=== PATIENT | female | born 1945 | race Caucasian/White ===

== ENCOUNTER 2018-12-27 19:06 | Inpatient (IN) | payer MEDICARE, OTHER ==
--- NOTE | 2018-12-27 19:39 | ER Document Report ---
ED Medical Screen (RME) - General Chief Complaint: Flu Symptoms Stated Complaint: POSS BRONCHITIS Time Seen by Provider: 12/27/18 19:23 Mode of Arrival: Wheelchair Information source: Patient Notes: Patient is a 73-year-old female who presents to the emergency department with complaints of cough, congestion and fever. Patient reports this is been going on for several days, states last week she was diagnosed with the flu. She states yesterday she was seen at the urgent care and diagnosed with "fluid on her lungs". She states they started her on Tessalon Perles and azithromycin. She states her symptoms have worsened since then. She states she continues to have diarrhea several times daily. Denies any vomiting. Patient does have a history of bronchitis, COPD and asthma. Exam: Patient alert, oriented and answering all questions appropriately. Lung sounds with crackles and rhonchi throughout. I have greeted and performed a rapid initial assessment of this patient. A comprehensive ED assessment and evaluation of the patient, analysis of test results and completion of the medical decision making process will be conducted by additional ED providers. Dictation of this chart was performed using voice recognition software; therefore, there may be some unintended grammatical errors. TRAVEL OUTSIDE OF THE [place] IN LAST 30 DAYS: No - Related Data Allergies/Adverse Reactions: codeine Allergy (Verified 12/27/18 19:07) erythromycin base Allergy (Verified 12/27/18 19:07) Penicillins Allergy (Verified 12/27/18 19:07) Sulfa (Sulfonamide Antibiotics) Allergy (Verified 12/27/18 19:07) Physical Exam - Vital signs Vitals: Temp Pulse Resp BP Pulse Ox 98.1 F 94 18 133/66 H 92 12/27/18 19:15 12/27/18 19:15 12/27/18 19:15 12/27/18 19:15 12/27/18 19:15 Course - Vital Signs Vital signs: Temp Pulse Resp BP Pulse Ox 98.1 F 94 18 133/66 H 92 12/27/18 19:15 12/27/18 19:15 12/27/18 19:15 12/27/18 19:15 12/27/18 19:15
--- NOTE | 2018-12-27 19:52 | RADIOLOGY REPORT (SQ) ---
EXAM DESCRIPTION: CHEST 2 VIEWS COMPLETED DATE/TIME: 12/27/2018 7:41 pm REASON FOR STUDY: FEVER, COUGH COMPARISON: None. EXAM PARAMETERS: NUMBER OF VIEWS: two views TECHNIQUE: Digital Frontal and Lateral radiographic views of the chest acquired. RADIATION DOSE: NA LIMITATIONS: none FINDINGS: LUNGS AND PLEURA: Mild interstitial prominence. No focal infiltrate, masses or pneumothor ax. No pleural effusion. MEDIASTINUM AND HILAR STRUCTURES: No masses or contour abnormalities. HEART AND VASCULAR STRUCTURES: Heart normal size. No evidence for failure. BONES: No acute findings. HARDWARE: None in the chest. OTHER: No other significant finding. IMPRESSION: NO ACUTE RADIOGRAPHIC FINDING IN THE CHEST. TECHNICAL DOCUMENTATION: JOB ID: [id number] [employer]- All Rights Reserved Reading location - IP/workstation name: [email or web address]
[2018-12-27 20:18] LABS: ABSOLUTE EOSINOPHILS # (AUTO) 0.1 10^3/uL (0.0-0.6); ABSOLUTE LYMPHOCYTES (AUTO) 1.7 10^3/uL (0.5-4.7); ABSOLUTE MONOCYTES (AUTO) 0.7 10^3/uL (0.1-1.4); ABSOLUTE NEUT (AUTO) 5.3 10^3/uL (1.7-8.2); BASOPHILS % (AUTO) 0.3 % (0-2); EOSINOPHILS % (AUTO) 0.8 % (0-6); HEMATOCRIT 39.8 % (36.0-47.0); HEMOGLOBIN 13.7 g/dL (12.0-15.5); LYMPHOCYTES % (AUTO) 21.5 % (13-45); MEAN CORPUSCULAR HEMOGLOBIN 30.9 pg (27.0-33.4); MEAN CORPUSCULAR HGB CONC 34.5 g/dL (32.0-36.0); MEAN CORPUSCULAR VOLUME 90 fl (80-97); MONOCYTES % (AUTO) 9.4 % (3-13); PLATELET COUNT 217 10^3/uL (150-450); RED BLOOD COUNT 4.44 10^6/uL (3.72-5.28); RED CELL DISTRIBUTION WIDTH 14.2 % (11.5-14.0); TOTAL CELLS COUNTED % (AUTO) 100 %; WHITE BLOOD COUNT 7.9 10^3/uL (4.0-10.5)
[2018-12-27 20:31] LABS: ALANINE AMINOTRANSFERASE 19 U/L (9-52); ALBUMIN 3.9 g/dL (3.5-5.0); ALKALINE PHOSPHATASE 50 U/L (38-126); ANION GAP 9 (5-19); ASPARTATE AMINO TRANSFERASE 32 U/L (14-36); BILIRUBIN,DIRECT 0.4 mg/dL (0.0-0.4); BILIRUBIN,TOTAL 0.6 mg/dL (0.2-1.3); BLOOD UREA NITROGEN 17 mg/dL (7-20); CALCIUM 9.7 mg/dL (8.4-10.2); CARBON DIOXIDE 25 mmol/L (22-30); CHLORIDE 102 mmol/L (98-107); GLUCOSE 118 mg/dL (75-110); POTASSIUM 4.3 mmol/L (3.6-5.0); SODIUM 135.6 mmol/L (137-145); TOTAL PROTEIN 6.5 g/dL (6.3-8.2)
[2018-12-27] MEDS ORDERED: METHYLPREDNISOLONE INJ 125 MG/2 ML SDV IV ONE (20:32)
[2018-12-27] MEDS ORDERED: RINGERS SOLUTION,LACTATED 1,000 ML IV ONE (20:32)
[2018-12-27] MEDS ORDERED: IPRATROPIUM/ALBUTEROL 0.5-2.5 MG/3 ML AMPUL NEB ONE (20:32)
--- NOTE | 2018-12-27 20:36 | ER Document Report ---
ED General - General Chief Complaint: Flu Symptoms Stated Complaint: FLU SYMPTOMS Time Seen by Provider: 12/27/18 19:23 Mode of Arrival: Wheelchair Notes: Patient is a 73-year-old female with a past medical history of hyperlipidemia, COPD without oxygen dependence at baseline who presents with 2 days of persistently worsening nonproductive cough, shortness of breath. Symptoms started gradually, have been worsening since onset, described as moderate to severe. Was seen at an urgent care yesterday, diagnosed as having a positive influenza test. Chest x-ray was obtained and there was concern of "fluid on the lungs". Patient was started on azithromycin and Tessalon Perles. She was instructed to come to the emergency department today due to worsening of her symptoms. Patient denies a history of similar symptoms in the past. She states her main symptom is shortness of breath and cough. Symptoms are worsened by exertion. Coughing also worsens her feeling of shortness of breath. She states the medications that have been started have not provided assistance. She has never had similar symptoms in the past. She does not yet have a local primary care doctor she recently moved to the area. She did receive both an influenza and pneumonia vaccine this year. TRAVEL OUTSIDE OF THE [place] IN LAST 30 DAYS: No - Related Data Allergies/Adverse Reactions: codeine Allergy (Verified 12/27/18 19:07) erythromycin base Allergy (Verified 12/27/18 19:07) Penicillins Allergy (Verified 12/27/18 19:07) Sulfa (Sulfonamide Antibiotics) Allergy (Verified 12/27/18 19:07) Past Medical History - General Information source: Patient - Social History Smoking Status: Former Smoker Frequency of alcohol use: None Drug Abuse: None Lives with: Alone Family History: Reviewed & Not Pertinent Patient has suicidal ideation: No Patient has homicidal ideation: No Pulmonary Medical History: Reports: Hx Asthma, Hx Bronchitis, Hx COPD Renal/ Medical History: Denies: Hx Peritoneal Dialysis Review of Systems - Review of Systems Notes: Constitutional: Negative for fever. HENT: Negative for sore throat. Eyes: Negative for visual changes. Cardiovascular: Negative for chest pain. Respiratory: Positive for shortness of breath and cough Gastrointestinal: Negative for abdominal pain, vomiting or diarrhea. Genitourinary: Negative for dysuria. Musculoskeletal: Negative for back pain. Skin: Negative for rash. Neurological: Negative for headaches, weakness or numbness. 10 point ROS negative except as marked above and in HPI. Physical Exam - Vital signs Vitals: Temp Pulse Resp BP Pulse Ox 98.1 F 94 18 133/66 H 92 12/27/18 19:15 12/27/18 19:15 12/27/18 19:15 12/27/18 19:15 12/27/18 19:15 Interpretation: Normal Notes: PHYSICAL EXAMINATION: GENERAL: Appears mildly uncomfortable but in no acute distress HEAD: Atraumatic, normocephalic. EYES: Pupils equal round and reactive to light, extraocular movements intact, sclera anicteric, conjunctiva are normal. ENT: nares patent, oropharynx clear without exudates. Moderately dry mucous membranes. NECK: Normal range of motion, supple without lymphadenopathy LUNGS: Coarse rales and expiratory wheezing in all lung [place]. No overt distress. Globally diminished air movement throughout. HEART: Regular rate and rhythm without murmurs ABDOMEN: Soft, nontender, normoactive bowel sounds. No guarding, no rebound. No masses appreciated. EXTREMITIES: Normal range of motion, no pitting or edema. No cyanosis. NEUROLOGICAL: No focal neurological deficits. Moves all extremities spontaneously and on command. PSYCH: Normal mood, normal affect. SKIN: Warm, Dry, normal turgor, no rashes or lesions noted. Course - Re-evaluation Re-evalutation: 12/27/18 20:35 Patient presents with what appears to be a COPD exacerbation secondary to underlying bronchitis. Chest x-ray without evidence of acute infiltrate. Lung exam likewise consistent with his diagnosis. Unfortunately patient is hypoxemic, 87% with good [place] on room air at the time of my assessment and does not normally have an oxygen dependency. Will begin continuous nebulizers, IV Solu-Medrol, IV magnesium, IV fluids and reassess. If the patient does persist with hypoxemia she will require hospitalization. 12/27/18 21:57 Patient has had persistent hypoxemia despite multiple [id number] nebs, magnesium steroids. I did go turn off her oxygen and patient desaturated to 88% within 2-3 minutes at the bedside. Supplemental oxygen restarted and I did discuss with the hospitalist Dr. Lewis who has accepted the patient for admission. - Vital Signs Vital signs: Temp Pulse Resp BP Pulse Ox 98.1 F 94 17 139/65 H 95 12/27/18 19:15 12/27/18 19:15 12/27/18 20:01 12/27/18 20:01 12/27/18 20:52 - Laboratory Result Diagrams: 12/27/18 19:58 12/27/18 19:58 Laboratory results interpreted by me: 12/27/18 12/27/18 19:58 19:58 RDW 14.2 H Sodium 135.6 L Glucose 118 H - Diagnostic Test Radiology reviewed: Image reviewed, Reports reviewed Radiology results interpreted by me: 12/27/18 20:36 Chest x-ray: No acute infiltrate or pneumothorax Discharge - Discharge Clinical Impression: Acute respiratory failure with hypoxia, Bronchitis COPD (chronic obstructive pulmonary disease) Qualifiers: COPD type: unspecified COPD Qualified Code(s): J44.9 - Chronic obstructive pulmonary disease, unspecified Condition: Fair Disposition: ADMITTED INPATIENT Admitting Provider: Joshua (Hospitalist) Unit Admitted: Telemetry
[2018-12-27] MEDS: MAGNESIUM SULFATE/D5W 1 GM/100 ML RTUPB IV SCH ×2 (20:42→21:19)
[2018-12-27 21:54] LABS: A TYPE INFLUENZA AG NEGATIVE (NEGATIVE); B INFLUENZA AG NEGATIVE (NEGATIVE)
[2018-12-27] MEDS ORDERED: ONDANSETRON HCL INJ/PF 4 MG/2 ML SDV IV PRN (22:24)
[2018-12-27] MEDS ORDERED: ALBUTEROL SULFATE 0.083% NEB 2.5 MG/3 ML AMPUL NEB PRN (22:24)
[2018-12-27 23:05] LABS: FREE T4 (FREE THYROXINE) 1.89 ng/dL (0.78-2.19)
[2018-12-27 23:07] LABS: INTERNATIONAL RATION (INR) 0.88; PROTHROMBIN TIME 12.4 SEC (11.4-15.4)
[2018-12-27 23:08] LABS: PARTIAL THROMBOPLASTIN TIME 30.9 SEC (23.5-35.8)
[2018-12-27 23:19] LABS: THYROID STIMULATING HORMONE 1.13 uIU/mL (0.47-4.68)
--- NOTE | 2018-12-28 00:47 | PDOC H&P ---
History of Present Illness Admission Date/PCP: 12/27/18 22:17 Patient complains of: diarrhea, chest congestion, shortness of breath History of Present Illness: JENNY FLOR is a 73 year old woman with COPD who has been feeling sick for about 1.5 weeks. She had diarrhea and cold sxmptoms for days and just yesterday went to urgent care, told she may have flu A (which is negative here). Sent home with cough syrup and z pack. [place] worse today with body aches, SOB and continued diarrhea, urgent care division operations manager doc advised she come to ED. Here she was found to be hypoxemic below 88% on RA, she does not use O2 at basline and she was having labored respirations. CXR does not show effusions or pNA, got one dose solumedrol 125 mg and duonebs. Still hypoxemic so now admitted to hospitalist with COPD exacerbation secondary to bronchitis. Past Medical History Cardiac Medical History: Denies: Atrial Fibrillation, Congestive Heart Failure, Coronary Artery Disease Pulmonary Medical History: Reports: Asthma, Bronchitis, Chronic Obstructive Pulmonary Disease (COPD) Neurological Medical History: Denies: Ischemic CVA, Multiple Sclerosis Endocrine Medical History: Denies: Diabetes Mellitus Type 2, Hyperthyroidism, Hypothyroidism Renal/ Medical History: Denies: Chronic Kidney Disease Malignancy Medical History: Denies: None GI Medical History: Denies: Cirrhosis, Gastroesophageal Reflux Disease Musculoskeltal Medical History: Denies: Arthritis, Fibromyalgia Skin Medical History: Denies: Eczema, Psoriasis Psychiatric Medical History: Denies: Alcohol Dependency, Depression, General Anxiety Disorder, Substance Abuse, Tobacco Dependency Traumatic Medical History: Reports: None Hematology: Denies: Anemia, Bleeding Tendencies Infectious Medical History: Denies: None Past Surgical History Past Surgical History: Reports: Orthopedic Surgery - left hand tendon release Social History Information Source: Patient, Relative Occupation: retired from [employer] and work Lives with: Alone Smoking Status: Former Smoker Number of Years Smokin Last Time Smoked: 11 years ago Frequency of Alcohol Use: None Hx Recreational Drug Use: No Drugs: None Hx Prescription Drug Abuse: No Past Social History Note: From [place], moved to [place] to take care of dad who just . Just recently moved to [facility] to live near daughter who is here. Pt in hotel for another month until her house is ready. - Advance Directive Resuscitation Status: OK to be intubated for respiratory failure, does not want chest compressions, but pressors/ACLS otherwise is ok Family History Family History: CAD Parental Family History Reviewed: Yes - father dies with [place], mom with CHF Children Family History Reviewed: Yes - healthy children Sibling(s) Family History Reviewed.: Yes - one brother twith multiple comorbidities Medication/Allergy Allergies/Adverse Reactions: codeine Allergy (Verified 12/27/18 19:07) erythromycin base Allergy (Verified 12/27/18 19:07) Penicillins Allergy (Verified 12/27/18 19:07) Sulfa (Sulfonamide Antibiotics) Allergy (Verified 12/27/18 19:07) Review of Systems Constitutional: PRESENT: anorexia, fatigue, fever(s) Eyes: ABSENT: visual disturbances Ears: ABSENT: hearing changes Nose, Mouth, and Throat: ABSENT: mouth pain, sore throat Cardiovascular: PRESENT: dyspnea on exertion. ABSENT: edema, palpitations Respiratory: PRESENT: cough, dyspnea, other - pleuritic chest pain. ABSENT: hemoptysis, sputum Gastrointestinal: PRESENT: diarrhea. ABSENT: abdominal pain, constipation, nausea, vomiting Genitourinary: ABSENT: difficulty urinating, dysuria Musculoskeletal: ABSENT: deformity, joint swelling Integumentary: ABSENT: erythema, lesions, wounds Neurological: ABSENT: dizziness, frequent falls, syncope Psychiatric: ABSENT: anxiety, depression Hematologic/Lymphatic: ABSENT: easy bleeding, easy bruising Physical Exam Vital Signs: Temp Pulse Resp BP Pulse Ox 98.1 F 94 17 118/83 94 12/27/18 19:15 12/27/18 19:15 12/27/18 20:01 12/27/18 22:00 12/27/18 22:00 Intake & Output 12/26/18 12/27/18 12/28/18 06:59 06:59 06:59 Intake Total 1162 Balance 1162 Weight 74.4 kg General appearance: PRESENT: cooperative, well-developed, well-nourished Head exam: PRESENT: atraumatic, normocephalic Eye exam: PRESENT: EOMI. ABSENT: conjunctival injection, scleral icterus Ear exam: PRESENT: normal external ear exam Mouth exam: PRESENT: neck supple, tongue midline Neck exam: ABSENT: tenderness, tracheal deviation Respiratory exam: PRESENT: rhonchi, wheezes. ABSENT: chest wall tenderness, rales, unlabored Cardiovascular exam: PRESENT: RRR. ABSENT: systolic murmur Pulses: PRESENT: normal radial pulses GI/Abdominal exam: PRESENT: normal bowel sounds, soft. ABSENT: distended, firm, guarding, tenderness Rectal exam: PRESENT: deferred Gentrourinary exam: ABSENT: indwelling catheter Extremities exam: ABSENT: calf tenderness, joint swelling, pedal edema, tenderness Musculoskeletal exam: PRESENT: normal inspection. ABSENT: deformity Neurological exam: PRESENT: alert, awake, oriented to person, oriented to place, oriented to situation, CN II-XII grossly intact Psychiatric exam: PRESENT: appropriate affect. ABSENT: anxious, depressed Skin exam: PRESENT: dry, intact, warm Results Laboratory Results: 12/27/18 19:58 12/27/18 19:58 12/27/18 12/27/18 12/27/18 19:58 19:58 19:58 WBC 7.9 RBC 4.44 Hgb 13.7 Hct 39.8 MCV 90 MCH 30.9 MCHC 34.5 RDW 14.2 H Plt Count 217 Seg Neutrophils % 68.0 Lymphocytes % 21.5 Monocytes % 9.4 Eosinophils % 0.8 Basophils % 0.3 Absolute Neutrophils 5.3 Absolute Lymphocytes 1.7 Absolute Monocytes 0.7 Absolute Eosinophils 0.1 Absolute Basophils 0.0 Sodium 135.6 L Potassium 4.3 Chloride 102 Carbon Dioxide 25 Anion Gap 9 BUN 17 Creatinine 0.61 Est GFR ( Amer) > 60 Est GFR (Non-Af Amer) > 60 Glucose 118 H Calcium 9.7 Total Bilirubin 0.6 AST 32 ALT 19 Alkaline Phosphatase 50 Total Protein 6.5 Albumin 3.9 TSH 1.13 Free T4 1.89 Impressions: Chest X-Ray 12/27/18 19:32 IMPRESSION: NO ACUTE RADIOGRAPHIC FINDING IN THE CHEST. Assessment and Plan - Diagnosis (1) Acute respiratory failure with hypoxia Is this a current diagnosis for this admission?: Yes Plan: pt does not use O2 at home, was hypoxemic <88% on RA in ED and after initial therapy and has dyspnea. She is now on 2L on NC O2 sattingin low 90s. WIll treat COPD and bronchitis. (2) COPD with acute exacerbation Is this a current diagnosis for this admission?: Yes Plan: States that prednisone can cause mouth sores but sheis not sure abotu this. HAs tolerate solumedtrol 125 x 1, I have ordered solumedrol 62.5 mg IV q 12 hrs and will follow closely. She states that the solumedrol improved her breathing quite a bit in the ED. She is also started on doxycycline 100 BID and duonebs q4hrs, albuterol q2hrs prn. (3) Bronchitis Is this a current diagnosis for this admission?: Yes Plan: pt has several antibiotic allergies that cause mouth swelling, states she has taken doxycycline in the past, will start doxycycline 100 mg po BID. Mucinex started. (4) Hypercholesterolemia Is this a current diagnosis for this admission?: Yes Plan: will start her tricor 145 mg daily - Time Time Spent with patient: 35 or more minutes Anticipated discharge: Home - Inpatient Certification Based on my medical assessment, after consideration of the patient's comorbidities, presenting symptoms, or acuity I expect that the services needed warrant INPATIENT care.: Yes I certify that my determination is in accordance with my understanding of [employer] 's requirements for reasonable and necessary INPATIENT services [42 CFR 412.3e].: Yes Medical Necessity: Need for Nebulizer Therapy and Monitoring of Response, Risk of Complication if Not Cared For in Hospital
[2018-12-28] MEDS ORDERED: DOXYCYCLINE HYCLATE 100 MG TABLET PO ONE ×2 (01:00→02:01)
[2018-12-28] MEDS ORDERED: GUAIFENESIN 600 MG TABLET.SA PO ONE (01:00)
[2018-12-28] MEDS: IPRATROPIUM/ALBUTEROL 0.5-2.5 MG/3 ML AMPUL NEB SCH ×7 (02:31→23:55)
[2018-12-28] MEDS: HEPARIN SOD (PORCINE) 5,000 UNIT/ML 1 ML SYRINGE SUBCUT SCH ×3 (05:43→21:12)
[2018-12-28] MEDS ORDERED: METHYLPREDNISOLONE INJ 125 MG/2 ML SDV IV SCH (06:00)
[2018-12-28 06:50] LABS: HEMOGLOBIN 11.9 g/dL (12.0-15.5); MEAN CORPUSCULAR HEMOGLOBIN 30.8 pg (27.0-33.4); MEAN CORPUSCULAR VOLUME 88 fl (80-97); PLATELET COUNT 174 10^3/uL (150-450); RED BLOOD COUNT 3.87 10^6/uL (3.72-5.28); RED CELL DISTRIBUTION WIDTH 13.9 % (11.5-14.0); WHITE BLOOD COUNT 4.3 10^3/uL (4.0-10.5)
[2018-12-28 07:19] LABS: ANION GAP 8 (5-19); BLOOD UREA NITROGEN 12 mg/dL (7-20); CALCIUM 8.7 mg/dL (8.4-10.2); CARBON DIOXIDE 23 mmol/L (22-30); CHLORIDE 106 mmol/L (98-107); GLUCOSE 238 mg/dL (75-110); POTASSIUM 3.9 mmol/L (3.6-5.0); SODIUM 136.8 mmol/L (137-145)
[2018-12-28] MEDS: METHYLPREDNISOLONE INJ 125 MG/2 ML SDV IV SCH ×2 (09:06→21:13)
[2018-12-28] MEDS: GUAIFENESIN 600 MG TABLET.SA PO SCH ×2 (09:06→21:13)
[2018-12-28] MEDS: DOXYCYCLINE HYCLATE 100 MG TABLET PO SCH ×2 (09:06→21:13)
[2018-12-28] MEDS: ACETAMINOPHEN 325 MG TABLET PO PRN (18:47)
[2018-12-28] MEDS ORDERED: MAG HYDROX/AL HYDROX/SIMETH SUSP 30 ML UDCUP PO PRN (19:01)
[2018-12-29] MEDS: IPRATROPIUM/ALBUTEROL 0.5-2.5 MG/3 ML AMPUL NEB SCH (04:11)
[2018-12-29 05:34] LABS: ABSOLUTE LYMPHOCYTES (AUTO) 0.9 10^3/uL (0.5-4.7); ABSOLUTE MONOCYTES (AUTO) 0.6 10^3/uL (0.1-1.4); ABSOLUTE NEUT (AUTO) 10.7 10^3/uL (1.7-8.2); BASOPHILS % (AUTO) 0.1 % (0-2); HEMATOCRIT 35.7 % (36.0-47.0); HEMOGLOBIN 12.3 g/dL (12.0-15.5); LYMPHOCYTES % (AUTO) 7.3 % (13-45); MEAN CORPUSCULAR HEMOGLOBIN 30.6 pg (27.0-33.4); MEAN CORPUSCULAR HGB CONC 34.4 g/dL (32.0-36.0); MEAN CORPUSCULAR VOLUME 89 fl (80-97); MONOCYTES % (AUTO) 4.9 % (3-13); PLATELET COUNT 236 10^3/uL (150-450); RED BLOOD COUNT 4.01 10^6/uL (3.72-5.28); SEGMENTED NEUTROPHILS % (AUTO) 87.7 % (42-78); TOTAL CELLS COUNTED % (AUTO) 100 %
[2018-12-29 05:39] LABS: WHITE BLOOD COUNT 12.2 10^3/uL (4.0-10.5)
[2018-12-29 05:51] LABS: ANION GAP 9 (5-19); BLOOD UREA NITROGEN 13 mg/dL (7-20); CALCIUM 10.8 mg/dL (8.4-10.2); CARBON DIOXIDE 25 mmol/L (22-30); CHLORIDE 106 mmol/L (98-107); GLUCOSE 173 mg/dL (75-110); POTASSIUM 3.9 mmol/L (3.6-5.0); SODIUM 139.5 mmol/L (137-145)
[2018-12-29] MEDS ORDERED: PANTOPRAZOLE SODIUM 40 MG TABLET.DR PO SCH (06:00)
[2018-12-29] MEDS: HEPARIN SOD (PORCINE) 5,000 UNIT/ML 1 ML SYRINGE SUBCUT SCH ×3 (06:39→22:38)
--- NOTE | 2018-12-29 07:54 | PDOC PROGRESS REPORT ---
Subjective Progress Note for:: 12/28/18 Subjective:: The patient feels slightly better with regard to breathing. She did report having black stools. Her hemoglobin is lower today than at admission. The dark stools have been present for a week or 2. She does not have any associated epigastric discomfort. The patient does report intermittent discomfort across the lower abdomen. She is pain-free currently. Reason For Visit: COPD WITH ACUTE EXACERBATION, BRONCHITIS AND ACUTE Physical Exam Vital Signs: Temp Pulse Resp BP Pulse Ox 97.7 F 92 18 123/61 92 12/28/18 11:17 12/28/18 12:17 12/28/18 12:17 12/28/18 11:17 12/28/18 12:17 Intake & Output 12/27/18 12/28/18 12/29/18 06:59 06:59 06:59 Intake Total 1162 Balance 1162 Weight 74.9 kg General appearance: PRESENT: cooperative, mild distress, well-developed Head exam: PRESENT: atraumatic, normocephalic Eye exam: PRESENT: conjunctiva pink. ABSENT: scleral icterus Ear exam: PRESENT: normal external ear exam Mouth exam: PRESENT: moist, tongue midline Teeth exam: ABSENT: poor dentation Respiratory exam: PRESENT: rhonchi - Bilaterally, symmetrical. ABSENT: rales, tachypnea, wheezes Cardiovascular exam: PRESENT: RRR, +S1, +S2, systolic murmur - 2/6 Vascular exam: ABSENT: pallor GI/Abdominal exam: PRESENT: normal bowel sounds, soft. ABSENT: distended, tenderness Rectal exam: PRESENT: heme (+) stool Gentrourinary exam: ABSENT: indwelling catheter Extremities exam: ABSENT: pedal edema Neurological exam: PRESENT: alert, awake, oriented to person, oriented to place, oriented to time, oriented to situation, CN II-XII grossly intact Psychiatric exam: PRESENT: normal mood. ABSENT: agitated, anxious Focused psych exam: ABSENT: delusional, restlessness Skin exam: PRESENT: dry, warm. ABSENT: pallor Results Laboratory Results: 12/28/18 06:27 12/28/18 06:27 12/27/18 12/27/18 12/27/18 19:58 19:58 19:58 WBC 7.9 RBC 4.44 Hgb 13.7 Hct 39.8 MCV 90 MCH 30.9 MCHC 34.5 RDW 14.2 H Plt Count 217 Seg Neutrophils % 68.0 Lymphocytes % 21.5 Monocytes % 9.4 Eosinophils % 0.8 Basophils % 0.3 Absolute Neutrophils 5.3 Absolute Lymphocytes 1.7 Absolute Monocytes 0.7 Absolute Eosinophils 0.1 Absolute Basophils 0.0 Sodium 135.6 L Potassium 4.3 Chloride 102 Carbon Dioxide 25 Anion Gap 9 BUN 17 Creatinine 0.61 Est GFR ( Amer) > 60 Est GFR (Non-Af Amer) > 60 Glucose 118 H Calcium 9.7 Total Bilirubin 0.6 AST 32 ALT 19 Alkaline Phosphatase 50 Total Protein 6.5 Albumin 3.9 TSH 1.13 Free T4 1.89 12/28/18 12/28/18 06:27 06:27 WBC 4.3 RBC 3.87 Hgb 11.9 L Hct 34.0 L MCV 88 MCH 30.8 MCHC 35.0 RDW 13.9 Plt Count 174 Seg Neutrophils % Lymphocytes % Monocytes % Eosinophils % Basophils % Absolute Neutrophils Absolute Lymphocytes Absolute Monocytes Absolute Eosinophils Absolute Basophils Sodium 136.8 L Potassium 3.9 Chloride 106 Carbon Dioxide 23 Anion Gap 8 BUN 12 Creatinine 0.51 L Est GFR ( Amer) > 60 Est GFR (Non-Af Amer) > 60 Glucose 238 H Calcium 8.7 Total Bilirubin AST ALT Alkaline Phosphatase Total Protein Albumin TSH Free T4 Impressions: Chest X-Ray 12/27/18 19:32 IMPRESSION: NO ACUTE RADIOGRAPHIC FINDING IN THE CHEST. Assessment and Plan - Diagnosis (1) Acute respiratory failure with hypoxia Is this a current diagnosis for this admission?: Yes Plan: The patient is not on supplemental oxygen at home. She is on nasal cannula at this time. We will try and wean to room air. (2) COPD with acute exacerbation Is this a current diagnosis for this admission?: Yes Plan: Currently slightly improved on antibiotics, IV steroids and scheduled nebulizer treatments. She is on Advair at home. Over the next day or so I will resume daily inhaler regimen and and decrease scheduled nebulizer treatments. Continue antibiotics. (3) Bronchitis Is this a current diagnosis for this admission?: Yes Plan: Continue doxycycline. (4) Guaiac positive stools Is this a current diagnosis for this admission?: Yes Plan: The patient admits dark stools for several weeks. Abdominal pain is across the lower abdomen and not epigastric. She is on proton pump inhibitor therapy. Stool be submitted for occult blood testing. Hemoglobin did drop from admission. Additional workup will be based on Hemoccult testing. - Time Time Spent with patient: 15-24 minutes Medications reviewed and adjusted accordingly: Yes Anticipated discharge: Home
[2018-12-29] MEDS ORDERED: IPRATROPIUM/ALBUTEROL 0.5-2.5 MG/3 ML AMPUL NEB SCH (08:00)
[2018-12-29] MEDS: PANTOPRAZOLE SODIUM 40 MG TABLET.DR PO SCH ×2 (08:26→16:45)
[2018-12-29] MEDS: TIOTROPIUM BROMIDE DPI 5 CAP/KIT (18 MCG/CAP) IH SCH (10:35)
[2018-12-29] MEDS: GUAIFENESIN 600 MG TABLET.SA PO SCH ×2 (10:35→22:37)
[2018-12-29] MEDS: FLUTICASONE/VILANTEROL 100-25 MCG/DOSE IH SCH (10:36)
[2018-12-29] MEDS: METHYLPREDNISOLONE INJ 125 MG/2 ML SDV IV SCH ×2 (10:36→22:38)
[2018-12-29] MEDS: DOXYCYCLINE HYCLATE 100 MG TABLET PO SCH ×2 (10:36→22:38)
--- NOTE | 2018-12-29 14:40 | PDOC PROGRESS REPORT ---
Subjective Progress Note for:: 12/29/18 Subjective:: The patient reports some epigastric discomfort. I made her aware of her guaiac positive stool. Her breathing is improved but still somewhat congested. Reason For Visit: COPD WITH ACUTE EXACERBATION, BRONCHITIS AND ACUTE Physical Exam Vital Signs: Temp Pulse Resp BP Pulse Ox 97.8 F 75 17 149/87 H 94 12/29/18 11:06 12/29/18 11:06 12/29/18 11:06 12/29/18 11:06 12/29/18 11:06 Intake & Output 12/28/18 12/29/18 12/30/18 06:59 06:59 06:59 Intake Total 1162 1083 Output Total 300 Balance 1162 783 Weight 74.9 kg 75 kg General appearance: PRESENT: no acute distress, cooperative, well-developed, other - On nasal cannula oxygen Head exam: PRESENT: atraumatic, normocephalic Eye exam: PRESENT: conjunctiva pink. ABSENT: scleral icterus Ear exam: PRESENT: normal external ear exam Mouth exam: PRESENT: moist, tongue midline Neck exam: ABSENT: carotid bruit, lymphadenopathy Respiratory exam: PRESENT: symmetrical, unlabored, other - Still with congested breath sounds. Faint intermittent wheeze present on the left.. ABSENT: accessory muscle use, rales, rhonchi Cardiovascular exam: PRESENT: RRR, +S1, +S2 GI/Abdominal exam: PRESENT: normal bowel sounds, soft. ABSENT: distended, tenderness Rectal exam: PRESENT: deferred, heme (+) stool Extremities exam: ABSENT: pedal edema Musculoskeletal exam: PRESENT: ambulatory Neurological exam: PRESENT: alert, awake, oriented to person, oriented to place, oriented to time, oriented to situation, CN II-XII grossly intact Psychiatric exam: PRESENT: normal mood. ABSENT: agitated, anxious Focused psych exam: ABSENT: delusional, restlessness Results Laboratory Results: 12/29/18 04:20 12/29/18 04:20 12/28/18 12/29/18 12/29/18 18:45 04:20 04:20 WBC 12.2 H D RBC 4.01 Hgb 12.3 Hct 35.7 L MCV 89 MCH 30.6 MCHC 34.4 RDW 14.0 Plt Count 236 Seg Neutrophils % 87.7 H Lymphocytes % 7.3 L Monocytes % 4.9 Eosinophils % 0.0 Basophils % 0.1 Absolute Neutrophils 10.7 H Absolute Lymphocytes 0.9 Absolute Monocytes 0.6 Absolute Eosinophils 0.0 Absolute Basophils 0.0 Sodium 139.5 Potassium 3.9 Chloride 106 Carbon Dioxide 25 Anion Gap 9 BUN 13 Creatinine 0.58 Est GFR ( Amer) > 60 Est GFR (Non-Af Amer) > 60 Glucose 173 H Calcium 10.8 H Stool Occult Blood POSITIVE Impressions: Chest X-Ray 12/27/18 19:32 IMPRESSION: NO ACUTE RADIOGRAPHIC FINDING IN THE CHEST. Assessment and Plan - Diagnosis (1) Acute respiratory failure with hypoxia Is this a current diagnosis for this admission?: Yes Plan: The patient was only 88% on room air last evening. At rest on room air she is still just below the desired oximetry level. I explained to her that with a patient who has COPD pulse oximetry readings between 90 and 94% or quite acceptable. Severe COPD patient's can have pulse oximetry readings of 88% and this may very well be their baseline. He had a long discussion of the mechanisms of the inhaler regimen as well as the intravenous steroids and the role that the antibiotics are playing. I told the patient and her daughter that it would benefit her to begin ambulating to assess her exercise capacity. (2) COPD with acute exacerbation Is this a current diagnosis for this admission?: Yes Plan: I started the patient on long-acting inhaler therapy with Brio Ellipta. She us es Advair at home. I added Spiriva. Decrease the frequency of her scheduled nebulizer treatments and change the albuterol to Xopenex. Continue to wean to room air. The steroid dose will be decreased. (3) Bronchitis Is this a current diagnosis for this admission?: Yes Plan: Continue doxycycline. (4) Guaiac positive stools Is this a current diagnosis for this admission?: Yes Plan: With the knowledge that her stool was guaiac positive the patient reported h istory of a sense of food getting stuck in her throat. She has had gastroscopies and no pathology was noted. She then reported history of colon polyps. She was getting a colonoscopy every 3 years. There were no polyps on her last colonoscopy and the drum puller told her 10 years for the next assessment. She has since moved to [place] to be near her daughter. Yesterday she complained of some lower abdominal discomfort but she reports this morning that last night she had epigastric discomfort. Explained to the patient that her hemoglobin is actually improving. If there was an ulcer that was bleeding her hemoglobin would continue to drop. If there is an ulcer or gastritis the treatment would be put on pump inhibitor therapy. She is now on Protonix twice daily. We discussed the need for inpatient versus outpatient endoscopy. I explained that because there is sedation involved I would rather have her pulmonary function back to baseline. If there is active bleeding then the need to diagnose outweighs the risk. If the patient's hemoglobin continues to increase I will refer her to gastroenterology locally because she will need surveillance of her colon as well as endoscopy. I have ordered stool for Helicobacter. We did agree that if her hemoglobin were to decrease then I would ask surgery to see the patient for endoscopy. She will continue on the Protonix 40 mg twice daily for the time being. - Time Time Spent with patient: 35 or more minutes Medications reviewed and adjusted accordingly: Yes Anticipated discharge: Home
[2018-12-29] MEDS: LEVALBUTEROL HCL NEB 0.63 MG/3 ML AMPUL NEB SCH (15:48)
[2018-12-29] MEDS: ACETAMINOPHEN 325 MG TABLET PO PRN (16:48)
[2018-12-30] MEDS: LEVALBUTEROL HCL NEB 0.63 MG/3 ML AMPUL NEB SCH ×3 (00:02→16:22)
[2018-12-30] MEDS: HEPARIN SOD (PORCINE) 5,000 UNIT/ML 1 ML SYRINGE SUBCUT SCH ×2 (05:39→14:12)
[2018-12-30 05:45] LABS: HEMATOCRIT 37.9 % (36.0-47.0); MEAN CORPUSCULAR HEMOGLOBIN 30.5 pg (27.0-33.4); MEAN CORPUSCULAR HGB CONC 34.3 g/dL (32.0-36.0); MEAN CORPUSCULAR VOLUME 89 fl (80-97); PLATELET COUNT 306 10^3/uL (150-450); RED BLOOD COUNT 4.27 10^6/uL (3.72-5.28); RED CELL DISTRIBUTION WIDTH 14.2 % (11.5-14.0); WHITE BLOOD COUNT 14.9 10^3/uL (4.0-10.5)
[2018-12-30 05:49] LABS: ANION GAP 9 (5-19); BLOOD UREA NITROGEN 21 mg/dL (7-20); CALCIUM 9.7 mg/dL (8.4-10.2); CARBON DIOXIDE 27 mmol/L (22-30); CHLORIDE 105 mmol/L (98-107); GLUCOSE 150 mg/dL (75-110); POTASSIUM 4.5 mmol/L (3.6-5.0); SODIUM 140.7 mmol/L (137-145)
[2018-12-30] MEDS: PANTOPRAZOLE SODIUM 40 MG TABLET.DR PO SCH ×2 (08:32→16:52)
[2018-12-30] MEDS: TIOTROPIUM BROMIDE DPI 5 CAP/KIT (18 MCG/CAP) IH SCH (09:58)
[2018-12-30] MEDS: FLUTICASONE/VILANTEROL 100-25 MCG/DOSE IH SCH (09:58)
[2018-12-30] MEDS: GUAIFENESIN 600 MG TABLET.SA PO SCH (09:59)
[2018-12-30] MEDS: METHYLPREDNISOLONE INJ 125 MG/2 ML SDV IV SCH (09:59)
[2018-12-30] MEDS: DOXYCYCLINE HYCLATE 100 MG TABLET PO SCH (09:59)
[2018-12-30 17:11] VITALS: BP 136/69
--- NOTE | 2018-12-30 17:44 | PDOC DISCHARGE SUMMARY ---
General - Admit/Disc Date/PCP Admission Date/Primary Care Provider: 12/27/18 22:17 Discharge Date: 12/30/18 - Discharge Diagnosis (1) Acute respiratory failure with hypoxia Is this a current diagnosis for this admission?: Yes Summary: The patient required supplemental oxygen therapy and exhibited increased work of breathing upon admission. Treatment with antibiotics and nebulizers as well as steroids allowed her to wean back to room air. Respiratory failure resolved (2) COPD with acute exacerbation Is this a current diagnosis for this admission?: Yes Summary: The patient takes Advair at home. She only takes 2 puffs once a day. I substituted Brio Ellipta during her hospitalization. I also added Spiriva. This combination seems to be helping. She will return to her Advair but she should take 2 puffs twice a day and continue the Spiriva. She has weaned to room air and is safe to return home. The patient needs to establish with a primary care provider. We discussed several options. Her daughter will follow up to ensure compliance. (3) Bronchitis Is this a current diagnosis for this admission?: Yes Summary: The patient was given doxycycline for bronchitis associated with chronic obstructive pulmonary disease. She is noticeably improved. She will complete doxycycline as an outpatient. (4) Guaiac positive stools Is this a current diagnosis for this admission?: Yes Summary: The patient had guaiac positive stools. Her hemoglobin dropped consistently increased since then. She did have epigastric discomfort and dark stools. She states that her stools are getting gag writer. She will be discharged on Protonix 40 mg twice daily. I did order a stool for Helicobacter antigen but the results are not available. Because of her history of colon polyps and a sensation of difficulty swallowing I strongly encouraged her to establish with a local [facility] roenterologist. (5) Melena Is this a current diagnosis for this admission?: Yes Summary: Because of the epigastric discomfort and black stools that were guaiac positive the patient will be treated with maximum proton pump inhibitor therapy. Stool for Helicobacter testing was submitted but results unavailable. Follow-up with primary care provider. - Additional Information Resuscitation Status: OK to be intubated for respiratory failure, does not want chest compressions, but pressors/ACLS otherwise is ok Discharge Diet: Cardiac Discharge Activity: Activity As Tolerated, Balance Activity w/Rest Prescriptions: Doxycycline Hyclate [Vibramycin 100 mg Tablet] 100 mg PO Q12 7 Days #14 tablet Fluticasone/Salmeterol [Advair HFA 115-21 mcg Inhaler] 2 puff IH BID 30 Days #1 hfa.aer.ad Pantoprazole Sodium [Protonix [address] Tablet] 40 mg PO BIDACBS 30 Days #60 tablet.dr Prednisone [Deltasone 5 mg Tablet] 5 mg PO ASDIR 12 Days #39 tablet Tiotropium [place] [Spiriva Handihaler 5 Cap/Kit (18 Mcg/Cap)] 1 cap IH DAILY 30 Days #30 cap Home Medications: Cholecalciferol (Vitamin D3) [Vitamin D3 2000 unit Tablet] 2,000 unit PO DAILY 12/28/18 Fenofibrate Nanocrystallized [Tricor 145 mg Tablet] 145 mg PO DAILY 12/28/18 Doxycycline Hyclate [Vibramycin 100 mg Tablet] 100 mg PO Q12 7 Days #14 tablet 12/30/18 Fluticasone/Salmeterol [Advair HFA 115-21 mcg Inhaler] 2 puff IH BID 30 Days #1 hfa.aer.ad 12/30/18 Guaifenesin [Mucinex Sr 600 mg Tablet.sa] 600 mg PO Q12 tablet.sa 12/30/18 Pantoprazole Sodium [Protonix [address] Tablet] 40 mg PO BIDACBS 30 Days #60 tablet.dr 12/30/18 Prednisone [Deltasone 5 mg Tablet] 5 mg PO ASDIR 12 Days #39 tablet 12/30/18 Tiotropium [place] [Spiriva Handihaler 5 Cap/Kit (18 Mcg/Cap)] 1 cap IH DAILY 30 Days #30 cap 12/30/18 History of Present Illness Patient complains of: Productive cough with shortness of breath History of Present Illness: JENNY FLOR is a 73 year old female with a history of COPD who had been feeling poorly over the course of 1-1/2 weeks. She initially had diarrhea and symptoms of a cold. The day before admission she went to a walk-in urgent care center. She was told that she was positive for influenza. She was given a Z-Cuauhtemoc but no Tamiflu. She felt worse and went to the emergency department. She was found to be hypoxemic with an oxygen saturation below 88% on room air she was having increased work of breathing. She had a productive cough. She was referred to the hospitalist for admission for acute exacerbation of COPD with bronchitis. Hospital Course Hospital Course: The patient was initiated on antibiotics, steroids and breathing treatments for her COPD with bronchitis. Oxygen supplementation was provided. She then reported that she has been having dark stools for several weeks. A stool was submitted and tested positive for occult blood. She was placed on Protonix 40 mg twice daily. A stool was also requested for Helicobacter antigen however the results are not available at discharge. She was feeling better and her hemoglobin continues to increase. She will establish with primary care locally as she just moved to the area. She will also establish with gastroenterology since she has a history of colon polyps. Physical Exam Vital Signs: Temp Pulse Resp BP Pulse Ox 98.2 F 96 17 146/77 H 93 12/30/18 11:16 12/30/18 14:00 12/30/18 11:16 12/30/18 11:16 12/30/18 11:16 Intake & Output 12/29/18 12/30/18 12/31/18 06:59 06:59 06:59 Intake Total 1083 1240 Output Total 300 Balance 783 1240 Weight 75 kg 75 kg General appearance: PRESENT: no acute distress, cooperative, well-developed Head exam: PRESENT: atraumatic, normocephalic Eye exam: PRESENT: conjunctiva pink. ABSENT: scleral icterus Ear exam: PRESENT: normal external ear exam Mouth exam: PRESENT: moist, tongue midline Teeth exam: ABSENT: poor dentation Respiratory exam: PRESENT: clear to auscultation flores, symmetrical, unlabored. ABSENT: rales, rhonchi, tachypnea, wheezes Cardiovascular exam: PRESENT: RRR, +S1, +S2 GI/Abdominal exam: PRESENT: normal bowel sounds, soft. ABSENT: distended, guarding, tenderness Rectal exam: PRESENT: heme (+) stool, other - Patient reports stool is greenish color today. Gentrourinary exam: ABSENT: indwelling catheter Extremities exam: ABSENT: calf tenderness, pedal edema, tenderness Musculoskeletal exam: PRESENT: ambulatory. ABSENT: normal inspection Neurological exam: PRESENT: alert, awake, oriented to person, oriented to place, oriented to time, oriented to situation, CN II-XII grossly intact Psychiatric exam: PRESENT: appropriate affect, normal mood. ABSENT: agitated, anxious Focused psych exam: ABSENT: delusional, restlessness Results Laboratory Results: 12/30/18 04:35 12/30/18 04:35 12/30/18 12/30/18 04:35 04:35 WBC 14.9 H RBC 4.27 Hgb 13.0 Hct 37.9 MCV 89 MCH 30.5 MCHC 34.3 RDW 14.2 H Plt Count 306 Sodium 140.7 Potassium 4.5 Chloride 105 Carbon Dioxide 27 Anion Gap 9 BUN 21 H Creatinine 0.71 Est GFR ( Amer) > 60 Est GFR (Non-Af Amer) > 60 Glucose 150 H Calcium 9.7 Impressions: Chest X-Ray 12/27/18 19:32 IMPRESSION: NO ACUTE RADIOGRAPHIC FINDING IN THE CHEST. Qualifiers - * PATIENT BEING DISCHARGED WITH ANY OF THE FOLLOWING DIAGNOSIS: No Plan Time Spent: Greater than 30 Minutes
== END 2018-12-30 17:32 | disposition home or self-care (01) | DRG 190 ==
LOC: ER 19:06 → EH 22:17 → 4N 12-28
PROVIDERS: ADMIT Internal Medicine; ATTEND Internal Medicine
PROC: 3E0F73Z Introduction of Anti-inflammatory into Respiratory Tract, Via Natural or Artificial Opening (ICD-10-PCS; principal; 2018-12-28)
DX: J44.1 Chronic obstructive pulmonary disease with (acute) exacerbation (principal); J96.01 Acute respiratory failure with hypoxia; K92.1 Melena; J40 Bronchitis, not specified as acute or chronic; E78.00 Pure hypercholesterolemia, unspecified; Z88.6 Allergy status to analgesic agent; Z88.1 Allergy status to other antibiotic agents; Z88.0 Allergy status to penicillin; Z88.2 Allergy status to sulfonamides; Z82.49 Family history of ischemic heart disease and other diseases of the circulatory system; Z86.010 Personal history of colon polyps
CPT/HCPCS: 36415; 71046; 80048; 80053; 82272; 84439; 84443; 85025; 85027; 85610; 85730; 87040; 87804; 96365; 96366; 96375; 99284; J1644; J2930; J3475; J3490; J7120; J7614; J7620

== ENCOUNTER → 2019-03-05 | Outpatient (CLI) | payer MEDICARE, OTHER ==
--- NOTE | 2019-03-08 08:39 | XCELERA REPORT ---
[address] [address] Lower Extremity Venous Evaluation Procedure: A bilateral duplex scan of the lower extremity veins was performed. The evaluation included responses to compression and other maneuvers with patient in the supine and standing positions to assess venous insufficiency. Right Sided Venous Evaluation Deep venous system evaluatiion shows patent veins with no obstruction or significant reflux identified. Sapheno Femoral junction: no reflux. Femoral vein reflux: no reflux. Greater Saphenous vein, Proximal thigh: reflux: no reflux. Greater Saphenous vein, Distal thigh: reflux: no reflux. Greater Saphenous vein, Proximal below knee: reflux: no reflux. No significant Perforators identified. Left Sided Venous Evaluation Deep venous system evaluatiion shows patent veins with no obstruction or significant reflux identified. Sapheno Femoral junction: no reflux. Femoral vein reflux: no reflux. Greater Saphenous vein, Proximal thigh: reflux: no reflux. Greater Saphenous vein, Distal thigh: reflux: no reflux. Greater Saphenous vein, Proximal below knee: reflux: no reflux. No significant Perforators identified. Interpretation Summary No duplex evidence of DVT or obstruction in the bilateral lower extremities. No significant deep or superficial reflux. Name: JENNY FLOR Age: 73 yrs Gender: Female : 1945 Patient Status: Outpatient Patient Location: Study Date: 03/05/2019 08:04 AM Reason For Study: EDEMA Ordering Physician: BRENDA BRANHAM Performed By: Megan Antunez : BRENDA BRANHAM > Kranthi Morillo
== END ==
LOC: SP 07:26
PROVIDERS: ATTEND Physician Assistant
DX: R60.9 Edema, unspecified (principal)
CPT/HCPCS: 93970

== ENCOUNTER → 2019-07-30 | Outpatient (CLI) | payer MEDICARE, OTHER ==
--- NOTE | 2019-07-30 10:52 | WOMENS IMAGING REPORT ---
EXAM DESCRIPTION: BONE DENSITY HIP/SPINE COMPLETED DATE/TIME: 07/30/2019 9:34 am REASON FOR STUDY: Z78.0 ASYMPTOMATIC MENOPAUSAL STATE Z12.31 ENCNTR SCREEN MAMMOGRAM FOR MALIGNANT NEOPLASM OF PHANI Z78.0 ASYMPTOMATIC MENOPAUSAL STATE COMPARISON: None. TECHNIQUE: Dual-Energy X-ray Absorptiometry (DEXA) of the AP Spine and Hip. LIMITATIONS: None. FINDINGS: LUMBAR SPINE: The bone mineral density (BMD) measured from L1-L4 in the AP projection correlates with a T-score of -1.3, which is osteopenia as defined by the World Health Organization. BMD Change vs Baseline: N/A HIP: The bone mineral density (BMD) measured in the left hip correlates with a T-score of -1.5 in the neck , which is osteopenia as defined by the World Health Organization. BMD Change vs Baseline: N/A 10 year Fracture Risk Assessment: Major Osteoporotic Fracture: 16% Hip Fracture: 2.8% IMPRESSION: 1. LUMBAR SPINE WHO CLASSIFICATION: OSTEOPENIA. 2. HIP WHO CLASSIFICATION: OSTEOPENIA. OVERALL ASSESSMENT: WHO CLASSIFICATION: OSTEOPENIA. COMMENT: The World Health Organization defines low BMD as follows: T-score: Normal: Greater than -1.0 Osteopenia: Between -1.0 and -2.5 Osteoporosis: Less than -2.5 without fractures Established osteoporosis: Less than -2.5 with fractures In general, you may wish to consider: Diagnosis Treatment Follow-up DEXA Normal BMD Prevention 2-3 years Osteopenia Prevention/Therapy 1-2 years Osteoporosis Therapy Yearly TECHNICAL DOCUMENTATION: JOB ID: [id number] [employer]- All Rights Reserved Reading location - IP/workstation name: [email or web address]
== END ==
LOC: WI 08:15
PROVIDERS: ATTEND Physician Assistant
DX: Z12.31 Encounter for screening mammogram for malignant neoplasm of breast (principal); Z78.0 Asymptomatic menopausal state; M81.0 Age-related osteoporosis without current pathological fracture
CPT/HCPCS: 77063; 77067; 77080

== ENCOUNTER → 2020-08-03 | Outpatient (CLI) | payer MEDICARE, OTHER ==
--- NOTE | 2020-08-03 12:01 | WOMENS IMAGING REPORT ---
EXAM DESCRIPTION: BILAT SCREENING MAMMO W/CAD IMAGES COMPLETED DATE/TIME: 08/03/2020 10:28 am REASON FOR STUDY: Z12.31 ENCNTR SCREEN MAMMOGRAM FOR MALIGNANT NEOPLASM OF BREAST Z12.31 ENCNTR SCR EEN MAMMOGRAM FOR MALIGNANT NEOPLASM OF PHANI COMPARISON: 07/30/2019 EXAM PARAMETERS: Standard craniocaudal and mediolateral oblique views of each breast recorded using digital acquisition. Read with the assistance of CAD. [facility] - [email or web address] Cap Cutter Version 9.2 LIMITATIONS: None. FINDINGS: No suspicious masses, suspicious calcifications or architectural distortion. No areas of c oncern. IMPRESSION: NEGATIVE MAMMOGRAM. BIRADS 1 BREAST DENSITY: a. The breasts are almost entirely fatty. BIRAD: ASSESSMENT: 1 NEGATIVE RECOMMENDATION: ROUTINE SCREENING COMMENT: The patient has been notified of the results by letter per MQSA requirements. Additional no tification policies are in place for contacting patient with suspicious or incomplete findings. Quality ID #225: The [employer] recommends an annual screening mammogram for women aged 40 years or over. This facility utilizes a reminder system to ensure that all patients receive reminder letters, and/or direct phone calls for appointments. This includes reminders for routine scr eening mammograms, diagnostic mammograms, or other Breast Imaging Interventions when appropriate. Th is patient will be placed in the appropriate reminder system. TECHNICAL DOCUMENTATION: FINDING NUMBER: (1) ASSESSMENT: (1) JOB ID: [id number] 2010 [employer]- All Rights Reserved Reading location - IP/workstation name: [email or web address]
== END ==
LOC: WI 10:51
PROVIDERS: ATTEND Physician Assistant
DX: Z12.31 Encounter for screening mammogram for malignant neoplasm of breast (principal)
CPT/HCPCS: 77067

== ENCOUNTER → 2020-08-04 | Outpatient (CLI) | payer MEDICARE, OTHER ==
--- NOTE | 2020-08-04 14:06 | RADIOLOGY REPORT (SQ) ---
EXAM DESCRIPTION: KNEE RIGHT 4 VIEWS IMAGES COMPLETED DATE/TIME: 08/04/2020 12:51 pm REASON FOR STUDY: RT ANTERIOR KNEE PAIN M25.561 PAIN IN RIGHT KNEE COMPARISON: None. NUMBER OF VIEWS: Four views. TECHNIQUE: AP, lateral, and both oblique radiographic images acquired of the right knee. LIMITATIONS: None. FINDINGS: MINERALIZATION: Normal. BONES: No acute fracture or dislocation. No worrisome bone lesions. No significant osteophytes. JOINT: Minimal joint effusion. No significant joint space narrowing. OTHER: No other significant finding. IMPRESSION: Minimal joint effusion. No other significant finding. TECHNICAL DOCUMENTATION: JOB ID: [id number] 2010 [employer]- All Rights Reserved Reading location - IP/workstation name: [email or web address]
== END ==
LOC: OD 12:30
PROVIDERS: ATTEND Physician Assistant
DX: M25.561 Pain in right knee (principal)

== ENCOUNTER 2020-08-21 10:46 | Emergency (ER) | payer MEDICARE ==
--- NOTE | 2020-08-21 12:18 | ER Document Report ---
ED Medical Screen (RME) - General Chief Complaint: Hip Pain Stated Complaint: LEFT HIP/LEG PAIN Time Seen by Provider: 08/21/20 12:10 Primary Care Provider: BRENDA SPENCE PA-C [Primary Care Provider] - Follow up as needed Mode of Arrival: Wheelchair Information source: Patient Notes: 74-year-old female presented to ED for complaint of pain in left hip started T . She states on Monday the pain was still there and she fell left knee gave out and she was not able to stand and bruised her toes. She states she got up after 15 minutes was able to walk into the bedroom and then fell again. She states she fell again on so she came to the emergency room for increased pain and decreased mobility. She states she very seldom drinks no smoking no drugs has history of COPD left wrist surgery and eye surgery. Patient is alert oriented respirations regular nonlabored speaking in full sentences. I have greeted and performed a rapid initial assessment of this patient. A comprehensive ED assessment and evaluation of the patient, analysis of test results and completion of medical decision making process will be conducted by an additional ED providers. TRAVEL OUTSIDE OF THE [place] IN LAST 30 DAYS: No - Related Data Allergies/Adverse Reactions: codeine Allergy (Verified 12/27/18 19:07) erythromycin base Allergy (Verified 12/27/18 19:07) Penicillins Allergy (Verified 12/27/18 19:07) Sulfa (Sulfonamide Antibiotics) Allergy (Verified 12/27/18 19:07) Past Medical History - Past Medical History Cardiac Medical History: Denies: Hx Atrial Fibrillation, Hx Congestive Heart Failure, Hx Coronary Artery Disease Pulmonary Medical History: Reports: Hx Asthma, Hx Bronchitis, Hx COPD Endocrine Medical History: Denies: Hx Diabetes Mellitus Type 2, Hx Hyperthyroidism, Hx Hypothyroidism Renal/ Medical History: Denies: Hx Peritoneal Dialysis GI Medical History: Denies: Hx Cirrhosis, Hx Gastroesophageal Reflux Disease Musculoskeltal Medical History: Denies Hx Arthritis, Denies Hx Fibromyalgia Skin Medical History: Denies Hx Eczema, Denies Hx Psoriasis Psychiatric Medical History: Denies: Hx Depression Past Surgical History: Reports: Hx Orthopedic Surgery - left hand tendon release Physical Exam - Vital signs Vitals: Temp Pulse Resp BP Pulse Ox 97.8 F 74 16 142/69 H 97 08/21/20 11:02 08/21/20 11:02 08/21/20 11:02 08/21/20 11:02 08/21/20 11:02 Course - Vital Signs Vital signs: Temp Pulse Resp BP Pulse Ox 97.8 F 74 16 142/69 H 97 08/21/20 11:02 08/21/20 11:02 08/21/20 11:02 08/21/20 11:02 08/21/20 11:02 Doctor's Discharge - Discharge Referrals: BRENDA SPENCE PA-C [Primary Care Provider] - Follow up as needed
[2020-08-21 12:40] LABS: ABSOLUTE BASOPHILS # (AUTO) 0.1 10^3/uL (0.0-0.2); ABSOLUTE EOSINOPHILS # (AUTO) 0.3 10^3/uL (0.0-0.6); ABSOLUTE LYMPHOCYTES (AUTO) 1.8 10^3/uL (0.5-4.7); ABSOLUTE MONOCYTES (AUTO) 0.7 10^3/uL (0.1-1.4); ABSOLUTE NEUT (AUTO) 6.6 10^3/uL (1.7-8.2); BASOPHILS % (AUTO) 0.6 % (0-2); EOSINOPHILS % (AUTO) 3.3 % (0-6); HEMATOCRIT 41.6 % (36.0-47.0); HEMOGLOBIN 14.1 g/dL (12.0-15.5); LYMPHOCYTES % (AUTO) 19.3 % (13-45); MEAN CORPUSCULAR HEMOGLOBIN 30.5 pg (27.0-33.4); MEAN CORPUSCULAR HGB CONC 33.8 g/dL (32.0-36.0); MEAN CORPUSCULAR VOLUME 90 fl (80-97); MONOCYTES % (AUTO) 7.8 % (3-13); PLATELET COUNT 256 10^3/uL (150-450); RED BLOOD COUNT 4.61 10^6/uL (3.72-5.28); RED CELL DISTRIBUTION WIDTH 14.5 % (11.5-14.0); TOTAL CELLS COUNTED % (AUTO) 100 %; WHITE BLOOD COUNT 9.5 10^3/uL (4.0-10.5)
[2020-08-21 13:02] LABS: ALBUMIN 4.2 g/dL (3.5-5.0); ALKALINE PHOSPHATASE 56 U/L (38-126); ANION GAP 7 (5-19); ASPARTATE AMINO TRANSFERASE 25 U/L (14-36); BILIRUBIN,DIRECT 0.1 mg/dL (0.0-0.4); BILIRUBIN,TOTAL 0.6 mg/dL (0.2-1.3); BLOOD UREA NITROGEN 14 mg/dL (7-20); CALCIUM 9.5 mg/dL (8.4-10.2); CARBON DIOXIDE 25 mmol/L (22-30); CHLORIDE 106 mmol/L (98-107); GLUCOSE 97 mg/dL (75-110); POTASSIUM 4.3 mmol/L (3.6-5.0); TOTAL PROTEIN 6.8 g/dL (6.3-8.2)
--- NOTE | 2020-08-21 13:41 | RADIOLOGY REPORT (SQ) ---
EXAM DESCRIPTION: CT LUMBAR SPINE WITHOUT IMAGES COMPLETED DATE/TIME: 08/21/2020 11:54 am REASON FOR STUDY: Pain low back to foot decrease controlled left side COMPARISON: None. TECHNIQUE: Axial images acquired through the lumbar spine without intravenous contrast. Images revi ewed with lung, soft tissue and bone windows. Reconstructed coronal and sagittal MPR images reviewed . All images stored on PACS. All CT scanners at this facility use dose modulation, iterative reconstruction, and/or weight based d osing when appropriate to reduce radiation dose to as low as reasonably achievable (ALARA). [facility]: Dose Right [facility]: CareDose [facility]: Dose Right [facility]: Teradose 4D [facility]: [employer] RADIATION DOSE: mGy. LIMITATIONS: None. FINDINGS: SEGMENTATION: Normal. No transitional anatomy. ALIGNMENT: Normal. VERTEBRAL BODIES: There is a mild compression deformity at the L1 vertebral body which appears chroni c in nature. No acute fracture line or cortical disruption. No other loss of vertebral body height. No encroachment on the spinal canal. DISCS: Mild degenerative disc disease with loss of intervertebral disc heights. No disc bulge or spi nal canal stenosis. PEDICLES, TRANSVERSE PROCESSES: No fractures. No dislocation. No acute findings. FACETS, POSTERIOR ELEMENTS: No fractures. No dislocation. No spinal stenosis. HARDWARE: None in the spine. VISUALIZED RIBS: No fractures. SOFT TISSUES: No significant or acute finding in adjacent soft tissues. OTHER: No other significant finding. IMPRESSION: 1. Mild L1 compression deformity has a chronic appearance. No evidence of acute fracture or dislocat ion of the lumbar spine. TECHNICAL DOCUMENTATION: JOB ID: [id number] Quality ID # [id number]: Final reports with documentation of one or more dose reduction techniques (e.g., Au tomated exposure control, adjustment of the mA and/or kV according to patient size, use of iterative reconstruction technique) 2010 [employer]- All Rights Reserved Reading location - IP/workstation name: [email or web address]
[2020-08-21 13:51] LABS: APPEARANCE,URINE CLOUDY; BILIRUBIN,URINE NEGATIVE (NEGATIVE); COLOR,URINE YELLOW; GLUCOSE, URINE NEGATIVE (NEGATIVE); KETONES,URINE NEGATIVE (NEGATIVE); LEUKOCYTE ESTERASE,URINE LARGE (NEGATIVE); NITRITE,URINE NEGATIVE (NEGATIVE); PROTEIN,URINE 30 mg/dL (NEGATIVE); URINE SPECIFIC GRAVITY 1.017; UROBILINOGEN,URINE NEGATIVE mg/dL (<2.0)
[2020-08-21] MEDS ORDERED: DEXAMETHASONE SOD PHOS INJ 10 MG/1 ML VIAL IV ONE (18:14)
[2020-08-21] MEDS ORDERED: KETOROLAC TROMETHAMINE INJ/PF 30 MG/1 ML SDV IV ONE (18:14)
--- NOTE | 2020-08-21 18:43 | RADIOLOGY REPORT (SQ) ---
EXAM DESCRIPTION: KNEE LEFT 4 VIEW IMAGES COMPLETED DATE/TIME: 08/21/2020 6:32 pm REASON FOR STUDY: pain/weakness COMPARISON: None. NUMBER OF VIEWS: Four views. TECHNIQUE: AP, lateral, and both oblique radiographic images acquired of the left knee. LIMITATIONS: None. FINDINGS: MINERALIZATION: Osteopenia. BONES: No acute fracture or dislocation. No worrisome bone lesions. JOINT: Small joint effusion. SOFT TISSUES: No soft tissue swelling. No radio-opaque foreign body. OTHER: No other significant finding. IMPRESSION: Small joint effusion. TECHNICAL DOCUMENTATION: JOB ID: [id number] 2010 [employer]- All Rights Reserved Reading location - IP/workstation name: [email or web address]
[2020-08-21] MEDS ORDERED: DEXAMETHASONE SOD PHOSPHATE INJ 4 MG/1 ML VIAL IV ONE (19:45)
[2020-08-21] MEDS ORDERED: HYDROCODONE/ACETAMINOPHEN 5-325 MG TABLET PO ONE (20:16)
--- NOTE | 2020-08-21 20:46 | ER Document Report ---
ED General - General Chief Complaint: Hip Pain Stated Complaint: LEFT HIP/LEG PAIN Time Seen by Provider: 08/21/20 12:10 Primary Care Provider: BRENDA SPENCE PA-C [Primary Care Provider] - Follow up as needed Mode of Arrival: Wheelchair Notes: 74-year-old woman presenting to the emergency department with a history of left lower back and hip pain with left knee which has been giving out and buckling. She states that she began having some discomfort on Monday. States that she continued normal activities on her knee gave out on 2 separate occasions. She has had increased pain in the lower back and left hip area with pain radiating down the back of her thigh and into the leg. She also complains complain of some numbness in her left foot. She denies injury to the back or prior history of similar episode. TRAVEL OUTSIDE OF THE [place] IN LAST 30 DAYS: No - Related Data Allergies/Adverse Reactions: codeine Allergy (Verified 12/27/18 19:07) erythromycin base Allergy (Verified 12/27/18 19:07) Penicillins Allergy (Verified 12/27/18 19:07) Sulfa (Sulfonamide Antibiotics) Allergy (Verified 12/27/18 19:07) Home Medications: tricor, advair, protonix, vit d3 Past Medical History - General Information source: Patient - Social History Smoking Status: Former Smoker Frequency of alcohol use: Rare Drug Abuse: None Family History: CAD Patient has homicidal ideation: No - Past Medical History Cardiac Medical History: Denies: Hx Atrial Fibrillation, Hx Congestive Heart Failure, Hx Coronary Artery Disease Pulmonary Medical History: Reports: Hx Asthma, Hx Bronchitis, Hx COPD Endocrine Medical History: Denies: Hx Diabetes Mellitus Type 2, Hx Hyperthyroidism, Hx Hypothyroidism Renal/ Medical History: Denies: Hx Peritoneal Dialysis GI Medical History: Denies: Hx Cirrhosis, Hx Gastroesophageal Reflux Disease Musculoskeletal Medical History: Denies Hx Arthritis, Denies Hx Fibromyalgia Skin Medical History: Denies Hx Eczema, Denies Hx Psoriasis Psychiatric Medical History: Denies: Hx Depression Past Surgical History: Reports: Hx Orthopedic Surgery - left hand tendon release - Immunizations Hx Pneumococcal Vaccination: 09/25/12 Review of Systems - Review of Systems Notes: Constitutional: Negative for fever. HENT: Negative for sore throat. Eyes: Negative for visual changes. Cardiovascular: Negative for chest pain. Respiratory: Negative for shortness of breath. Gastrointestinal: Negative for abdominal pain, vomiting or diarrhea. Genitourinary: Negative for dysuria. Musculoskeletal: See HPI Skin: Negative for rash. Neurological: Negative for headaches, weakness or numbness. 10 point ROS negative except as marked above and in HPI. Physical Exam - Vital signs Vitals: Temp Pulse Resp BP Pulse Ox 97.8 F 74 16 142/69 H 97 08/21/20 11:02 08/21/20 11:02 08/21/20 11:02 08/21/20 11:02 08/21/20 11:02 - Notes Notes: PHYSICAL EXAMINATION: Physical Exam: General: Well-nourished well-developed 74-year-old woman in no acute distress HEENT: NC/AT, pupils equal round and reactive to light, MM moist,nares clear, oropharynx clear, airway patent Neck: supple, no adenopathy, no masses. Good range of motion Lungs: clear, no wheezing, no rales no rhonchi CVS: Regular rate and rhythm no murmur gallop or rub Abdomen: Soft, active, nontender, no masses, no hepatosplenomegaly Ext: + Tenderness in the left knee, tenderness in the lower back, lumbar 45 region left side. Neuro: Alert and responsive, moving all 4 extremities on command, cranial nerves intact, no focal findings Skin: Intact no open lesions, no rash PSYCH: Normal mood, normal affect. Course - Re-evaluation Re-evalutation: 08/21/20 20:44 I have discussed the findings of the CT scan and x-ray with the patient explained that she does have a small effusion on the left knee and a old compression fraction of L1 on CT scan. Her symptoms are suggestive of a piriformis syndrome with left hip pain radiating down the leg causing some weakness in left knee. Given her complaints a knee immobilizer is being placed and she is given medication for pain. Patient cannot tolerate NSAIDs and has a borderline glucose which raises concerns for courses of steroids. - Vital Signs Vital signs: Temp Pulse Resp BP Pulse Ox 97.8 F 74 16 142/69 H 97 08/21/20 11:02 08/21/20 11:02 08/21/20 11:02 08/21/20 11:02 08/21/20 11:02 - Laboratory Result Diagrams: 08/21/20 12:25 08/21/20 12:25 Laboratory results interpreted by me: 08/21/20 08/21/20 12:25 13:05 RDW 14.5 H Urine Protein 30 H Ur Leukocyte Esterase LARGE H Urine Ascorbic Acid 40 H - Diagnostic Test Radiology reviewed: Image reviewed, Reports reviewed Radiology results interpreted by me: 08/21/20 20:[address] 08/21/20 12:15 IMPRESSION: 1. Mild L1 compression deformity has a chronic appearance. No evidence of acute fracture or dislocation of the lumbar spine. Knee X-Ray 08/21/20 18:12 IMPRESSION: Small joint effusion. Discharge - Discharge Clinical Impression: Left hip pain, Effusion, left knee Sciatica Qualifiers: Laterality: left Qualified Code(s): M54.32 - Sciatica, left side Condition: Good Disposition: HOME, SELF-CARE Instructions: Sciatica ([facility]) Additional Instructions: You may begin a stretching exercises of the left side for sciatica (piriformis syndrome). Please take the medication as prescribed Benedict 1 tablet every 6-8 hours as needed for pain. These follow-up with your primary care doctor in a for physical therapy if the symptoms are not improving. HOME CARE INSTRUCTIONS & INFORMATION: Thank you for choosing us for your medical needs. We hope you're satisfied with the care you received. After you leave, you must properly care for your problem and, at the same time, observe its progress. Any condition can change. Some illnesses can change rapidly over hours or days. If your condition worsens, return to the Emergency Department or see your physician promptly. ABOUT YOUR X-RAYS AND EKG'S: If you had an EKG or X-rays taken, they have been read by the Emergency Physician. The X-rays and EKG's will also be read by a Radiologist or Bit Tripoler within 24 hours. If discrepancies are noted, you will be notified by telephone. Please be certain the ED has a correct telephone number & address where you can be reached. Also, realize that some fractures or abnormalities do not show up on initial X-rays. If your symptoms continue, see your physician. ABOUT YOUR LABORATORY TEST: If you had laboratory tests, the results have been reviewed by the Emergency Physician. Some test results (for example cultures) may not be available for several days. You will be contacted if any test result shows you need additional treatment. Please be certain the ED has a correct telephone number and address where you can be reached. ABOUT YOUR MEDICATIONS: You will receive instructions on how to take your medicine on the prescription label you receive. Additional information may be p rovided by the Pharmacy. If you have questions afterwards, call the ED for clarification or further instructions. Some prescribed medications may cause drowsiness. Do not perform tasks such as driving a car or operating machinery without consulting your Pharmacist. If you feel you need a refill of pain medication, your condition will need re-evaluation. Please do not call for a refill of any medication. ABOUT YOUR SIGNATURE: Signature of this document acknowledges to followin. Understanding that you received emergency treatment and that you may be released before al medical problems are known or treated. Please be certain the ED has a correct phone number & address where you can be reached. 2. Acknowledgement that you will arrange for follow-up care as recommended. 3. Authorization for the Emergency Physician to provide information to your follow-up Physician in order to maximize your care. AT ANY TIME, IF YOUR SYMPTOMS CHANGE SIGNIFICANTLY OR WORSEN OR YOU DEVELOP NEW SYMPTOMS, RETURN TO THE EMERGENCY DEPARTMENT IMMEDIATELY FOR RE-EVALUATION. OUR GOAL IS TO PROVIDE EXCELLENT MEDICAL CARE! WE HOPE THAT WE HAVE MET YOUR EXPECTATIONS DURING YOUR EMERGENCY DEPARTMENT VISIT AND THAT YOU FEEL YOU HAVE RECEIVED EXCELLENT CARE! Prescriptions: Gabapentin [Neurontin 100 mg Capsule] 100 mg PO TID PRN #30 capsule PRN Reason: For Pain Hydrocodone/Acetaminophen [Benedict 5-325 mg Tablet] 1 tab PO Q6 PRN #10 tablet PRN Reason: Hydrocodone/Acetaminophen [Benedict 5-325 mg Tablet] 1 tab PO Q6 PRN #10 tablet PRN Reason: Referrals: BRENDA SPENCE PA-C [Primary Care Provider] - Follow up as needed
[2020-08-21] MEDS ORDERED: HYDROCODONE/ACETAMINOPHEN 5-325 MG (6 TAB/ER DISP) PO PRN (21:09)
[2020-08-21] MEDS ORDERED: GABAPENTIN 100 MG CAPSULE PO ONE (21:40)
[2020-08-21 22:04] VITALS: BP 134/85
== END 2020-08-21 22:02 | disposition home or self-care (01) ==
LOC: ER 10:46
DX: M54.42 Lumbago with sciatica, left side (principal); M25.462 Effusion, left knee; J44.9 Chronic obstructive pulmonary disease, unspecified; Z79.899 Other long term (current) drug therapy; Z79.51 Long term (current) use of inhaled steroids; Z87.891 Personal history of nicotine dependence; Z88.6 Allergy status to analgesic agent; Z88.5 Allergy status to narcotic agent; Z88.1 Allergy status to other antibiotic agents; Z88.0 Allergy status to penicillin; Z88.2 Allergy status to sulfonamides
CPT/HCPCS: 99285; 96374; 96375; 36415; 85025; 80053; 81001; 73564; 72131; J1100; J1885; A9270 ×3